=== PATIENT | female | born 1955 | race Caucasian/White ===

== ENCOUNTER 2023-08-15 13:53 | Outpatient (CLI) | payer MEDICARE, SELFPAY ==
--- NOTE | 2023-08-15 13:45 | RT.EKG_ITS ---
APPROVED REPORT Exam: Resting ECG Reason for Exam: chest pain Patient Location: O HR:0 bpm ECG Measurements Heart Rate 0 AXIS NE [id number] P 0 QRSd [id number] QRS 0 QT [id number] T [id number] QTc 0 Conclusion All 12 leads are missing
== END 2023-08-15 13:54 | disposition home or self-care (01) ==
LOC: DI.CM 13:53
PROVIDERS: Visit Provider Nurse Practitioner Family